=== PATIENT | female | born 1965 | race Caucasian/White ===

== ENCOUNTER 2019-12-22 06:35 | Day surgery (SDC) | payer MEDICAID, OTHER ==
[~2019-12-22] VITALS: Ht 157.5 cm; Wt 90.7 kg
[2019-12-22] MEDS ORDERED: LIDOCAINE 2% 100 MG/5 ML UJET TP ONE (08:03)
[2019-12-22] MEDS ORDERED: MIDAZOLAM 2 MG/2 ML VIAL ONE (08:03)
[2019-12-22] MEDS ORDERED: fentaNYL 0.05 MG/ML VIAL ONE (08:03)
[2019-12-22] MEDS ORDERED: MIDAZOLAM 2 MG/2 ML VIAL IVP ONE (09:30)
[2019-12-22] MEDS ORDERED: fentaNYL 0.05 MG/ML VIAL IVP ONE (09:30)
== END 2019-12-22 10:00 | disposition home or self-care (01) ==
LOC: MDS 06:35 → MMU 06:37 → EDSEX 08:20 → MDS 10:00
PROVIDERS: ATTEND Internal Medicine Gastroenterology
DX: R19.4 Change in bowel habit (principal); D12.3 Benign neoplasm of transverse colon; K57.30 Diverticulosis of large intestine without perforation or abscess without bleeding; K64.8 Other hemorrhoids; K20.9 Esophagitis, unspecified; K29.70 Gastritis, unspecified, without bleeding; E11.9 Type 2 diabetes mellitus without complications; E78.00 Pure hypercholesterolemia, unspecified; Z80.0 Family history of malignant neoplasm of digestive organs; E66.9 Obesity, unspecified; Z87.891 Personal history of nicotine dependence; Z79.82 Long term (current) use of aspirin; Z79.84 Long term (current) use of oral hypoglycemic drugs
CPT/HCPCS: 36415; 43239; 45385; 86677; J2250; J3010